=== PATIENT | female | born 1960 | race Caucasian/White ===

== ENCOUNTER 2017-06-04 12:45 | Inpatient (IN) ==
[2017-06-04] MEDS ORDERED: ACETAMINOPHEN 325 MG TABLET PO PRN (13:40)
[2017-06-04] MEDS ORDERED: MORPHINE 2 MG/1 ML SYRINGE IV PRN (13:40)
[2017-06-04] MEDS: PANTOPRAZOLE 40 MG VIAL IV SCH (15:23)
[2017-06-04 15:59] LABS: Basophils # 0.1 10*3/uL (0.0-0.2); Basophils % 0.4 % (0.0-0.8); Eosinophils % 0.1 % (0.00-10.9); Hematocrit 32.6 VOL% (35.7-47.0); Hemoglobin 11.4 GM/DL (12.0-16.0); Immature Granulocytes % 0.7 %; Immature Granulocytes Absolute 0.08 #; Lymphocytes # 1.4 10*3/uL (1.4-4.0); Lymphocytes % 12.1 % (21.3-54.2); Mean Corpuscular Hemoglobin 37 PG (27-34); Mean Corpuscular Volume 106.5 FL (87-102); Mean Platelet Volume 9.8 FL (9.6-12.0); Monocytes # 1.2 10*3/uL (0.11-0.8); Monocytes % 10.5 % (1.7-12.7); NRBC # 0.03 10*3/uL; Neutrophils # 8.9 10*3/uL (1.4-7.4); Neutrophils % 76.2 % (38.7-73.9); Platelet Count 361 T/CUMM (130-400); Red Blood Count 3.06 MC/CUMM (3.8-5.5); Red Cell Distribution Width 12.5 % (9.3-17.3); White Blood Count 11.7 T/CUMM (4-12)
[2017-06-04 16:18] LABS: Albumin 3.6 G/DL (3.4-5.0); Bilirubin,Total 1.6 MG/DL (0.2-1.0); Calcium 9.2 MG/DL (8.5-10.1); Ferritin 1488.2 ng/ml (8-252); Free T4 (Free Thyroxine) 1.56 NG/DL (0.76-1.46); Magnesium 1.8 MG/DL (1.8-2.4); Osmolality,Calculated 249.5 MOS/KG (273-304); Total Protein 7.6 G/DL (6.4-8.3)
[2017-06-04] MEDS: DEXT 5% NACL 0.9% KCL 20 MEQ 20 MEQ/1,000 ML BAG IV SCH (16:45)
[2017-06-04 16:58] LABS: Apearance,Urine CLEAR (Clear); Bacteria,Urine Occasional /HPF (Few); Bilirubin,Urine Negative (Negative); Blood, Urine Negative (Negative); Glucose,Urine (UA) Negative (Negative); Ketones,Urine 5 mg/dL (Negative); Mucus,Urine Occasional /LPF (Occasional); Nitrite,Urine Negative (Negative); Protein,Urine Negative; RBC,Urine <1 /HPF (0-4); Squamous Epithelial Cell,Urine Occasional /HPF (0-10); Urine Color Yellow (Yellow); Urine Specific Gravity 1.027 (1.001-1.035); WBC,Urine <1 /HPF (0-6)
[2017-06-04] MEDS: ONDANSETRON 4 MG/2 ML VIAL IV PRN (20:31)
[2017-06-04] MEDS: DOCUSATE SODIUM 100 MG CAPSULE PO SCH (22:58)
[2017-06-04] MEDS ORDERED: traMADol 50 MG TABLET PO PRN (23:36)
[2017-06-05] MEDS: DEXT 5% NACL 0.9% KCL 20 MEQ 20 MEQ/1,000 ML BAG IV SCH ×4 (00:25→22:46)
[2017-06-05 06:07] LABS: Calcium 8.4 MG/DL (8.5-10.1); Osmolality,Calculated 266.1 MOS/KG (273-304); Potassium 4.6 MMOL/L (3.5-5.1)
[2017-06-05 06:08] LABS: Risk Ratio 4.93; VLDL CHOLESTEROL 19.2 MG/DL
[2017-06-05] MEDS: ONDANSETRON 4 MG/2 ML VIAL IV PRN ×2 (07:44→17:07)
[2017-06-05] MEDS: PANTOPRAZOLE 40 MG VIAL IV SCH (08:22)
[2017-06-05] MEDS: DOCUSATE SODIUM 100 MG CAPSULE PO SCH ×2 (08:22→22:43)
[2017-06-05] MEDS: ESTROGENS (CONJ) 0.625 MG TABLET PO SCH (08:23)
[2017-06-06] MEDS: DEXT 5% NACL 0.9% KCL 20 MEQ 20 MEQ/1,000 ML BAG IV SCH ×3 (05:20→18:41)
[2017-06-06 06:01] LABS: Basophils % 0.5 % (0.0-0.8); Eosinophils % 0.3 % (0.00-10.9); Hematocrit 26.4 VOL% (35.7-47.0); Immature Granulocytes % 0.5 %; Immature Granulocytes Absolute 0.04 #; Lymphocytes # 1.4 10*3/uL (1.4-4.0); Lymphocytes % 15.6 % (21.3-54.2); Mean Corpuscular HGB Conc 34.1 GM/DL (32-36); Mean Corpuscular Hemoglobin 38 PG (27-34); Mean Corpuscular Volume 110.5 FL (87-102); Mean Platelet Volume 9.5 FL (9.6-12.0); Monocytes % 10.9 % (1.7-12.7); Neutrophils # 6.3 10*3/uL (1.4-7.4); Neutrophils % 72.2 % (38.7-73.9); Platelet Count 270 T/CUMM (130-400); Red Blood Count 2.39 MC/CUMM (3.8-5.5); Red Cell Distribution Width 12.8 % (9.3-17.3); White Blood Count 8.7 T/CUMM (4-12)
[2017-06-06 06:19] LABS: Giant Platelets Few; Hypochromasia 1+; Platelet Estimate Adequate
[2017-06-06 06:38] LABS: Calcium 8.4 MG/DL (8.5-10.1); Osmolality,Calculated 274.4 MOS/KG (273-304); Potassium 4.2 MMOL/L (3.5-5.1)
[2017-06-06] MEDS: ESTROGENS (CONJ) 0.625 MG TABLET PO SCH (09:15)
[2017-06-06] MEDS: DOCUSATE SODIUM 100 MG CAPSULE PO SCH (09:16)
[2017-06-06] MEDS: PANTOPRAZOLE 40 MG VIAL IV SCH (09:19)
[2017-06-06] MEDS ORDERED: POLYETHYLENE GLYCOL POWDER 255 GM BOTTLE PO ONE (11:00)
[2017-06-06] MEDS ORDERED: BISACODYL 5 MG TABLET PO ONE (11:30)
[2017-06-06] MEDS: ONDANSETRON 4 MG/2 ML VIAL IV PRN ×2 (14:02→21:39)
[2017-06-07 05:44] LABS: Basophils % 0.5 % (0.0-0.8); Eosinophils # 0.1 10*3/uL (0.0-0.87); Eosinophils % 0.6 % (0.00-10.9); Hematocrit 26.9 VOL% (35.7-47.0); Hemoglobin 9.3 GM/DL (12.0-16.0); Immature Granulocytes % 1.1 %; Immature Granulocytes Absolute 0.09 #; Lymphocytes # 1.2 10*3/uL (1.4-4.0); Lymphocytes % 14.6 % (21.3-54.2); Mean Corpuscular HGB Conc 34.6 GM/DL (32-36); Mean Corpuscular Hemoglobin 38 PG (27-34); Mean Corpuscular Volume 108.5 FL (87-102); Mean Platelet Volume 9.2 FL (9.6-12.0); Monocytes # 0.7 10*3/uL (0.11-0.8); Monocytes % 8.7 % (1.7-12.7); Neutrophils # 6.1 10*3/uL (1.4-7.4); Neutrophils % 74.5 % (38.7-73.9); Platelet Count 300 T/CUMM (130-400); Red Blood Count 2.48 MC/CUMM (3.8-5.5); Red Cell Distribution Width 12.7 % (9.3-17.3); White Blood Count 8.2 T/CUMM (4-12)
[2017-06-07 06:17] LABS: Blood Urea Nitrogen < 1 MG/DL (7-18); Glucose 89 MG/DL (74-106); Osmolality,Calculated 273.8 MOS/KG (273-304); Sodium 140 MMOL/L (136-145)
[2017-06-07] MEDS: DOCUSATE SODIUM 100 MG CAPSULE PO SCH ×2 (07:58→11:05)
[2017-06-07] MEDS: PANTOPRAZOLE 40 MG VIAL IV SCH (11:03)
[2017-06-07] MEDS: DEXT 5% NACL 0.9% KCL 20 MEQ 20 MEQ/1,000 ML BAG IV SCH ×2 (11:03→18:08)
[2017-06-07] MEDS: ESTROGENS (CONJ) 0.625 MG TABLET PO SCH (11:04)
[2017-06-07] MEDS ORDERED: ONDANSETRON 4 MG/2 ML VIAL ONE (13:53)
[2017-06-07] MEDS: ONDANSETRON 4 MG/2 ML VIAL IV PRN ×2 (13:58→21:59)
[2017-06-07] MEDS: metroNIDAZOLE INJ 500 MG in PREMIX 1 EACH IV SCH (18:10)
[2017-06-07] MEDS: CIPROFLOXACIN INJ 400 MG in PREMIX 1 EACH IV SCH (19:20)
[2017-06-08] MEDS: metroNIDAZOLE INJ 500 MG in PREMIX 1 EACH IV SCH ×3 (03:09→18:38)
[2017-06-08] MEDS: DOCUSATE SODIUM 100 MG CAPSULE PO SCH ×4 (03:09→23:08)
[2017-06-08 04:38] LABS: Basophils % 0.4 % (0.0-0.8); Eosinophils # 0.1 10*3/uL (0.0-0.87); Eosinophils % 0.7 % (0.00-10.9); Hemoglobin 9.1 GM/DL (12.0-16.0); Immature Granulocytes % 0.7 %; Immature Granulocytes Absolute 0.06 #; Lymphocytes # 1.2 10*3/uL (1.4-4.0); Mean Corpuscular Hemoglobin 37 PG (27-34); Mean Corpuscular Volume 106.6 FL (87-102); Monocytes # 0.7 10*3/uL (0.11-0.8); Neutrophils % 77.2 % (38.7-73.9); Platelet Count 298 T/CUMM (130-400); Red Blood Count 2.44 MC/CUMM (3.8-5.5); Red Cell Distribution Width 12.6 % (9.3-17.3); White Blood Count 9.1 T/CUMM (4-12)
[2017-06-08] MEDS: DEXT 5% NACL 0.9% KCL 20 MEQ 20 MEQ/1,000 ML BAG IV SCH ×2 (04:47→15:41)
[2017-06-08 04:58] LABS: Blood Urea Nitrogen < 1 MG/DL (7-18); Calcium 8.2 MG/DL (8.5-10.1); Glucose 78 MG/DL (74-106); Osmolality,Calculated 279.3 MOS/KG (273-304); Potassium 3.9 MMOL/L (3.5-5.1); Sodium 143 MMOL/L (136-145)
[2017-06-08] MEDS ORDERED: cefOXitin 2,000 MG in SYRINGE 1 EACH IV ONE (08:00)
[2017-06-08] MEDS ORDERED: ALBUMIN 5% 12.5 GM/250 ML VIAL IV ONE (08:37)
[2017-06-08] MEDS ORDERED: BUPIVACAINE 0.25% 50 ML VIAL ONE (08:50)
[2017-06-08] MEDS ORDERED: TISSUE ADHESIVE 1 EACH APPLICATOR TOP ONE (08:50)
[2017-06-08] MEDS ORDERED: ENOXAPARIN 30 MG/0.3 ML SYRINGE SUBCUT SCH (09:00)
[2017-06-08] MEDS: PANTOPRAZOLE 40 MG VIAL IV SCH (09:00)
[2017-06-08] MEDS: ESTROGENS (CONJ) 0.625 MG TABLET PO SCH (09:00)
[2017-06-08] MEDS: CIPROFLOXACIN INJ 400 MG in PREMIX 1 EACH IV SCH ×2 (09:00→23:05)
[2017-06-08] MEDS ORDERED: SEVOFLURANE 1 UNIT/15 MINUTE INH ONE (13:13)
[2017-06-08] MEDS ORDERED: LABETALOL 20 MG/4 ML SYRINGE IV ONE (13:13)
[2017-06-08] MEDS ORDERED: PROPOFOL 200 MG/20 ML VIAL IV ONE (13:13)
[2017-06-08] MEDS ORDERED: ONDANSETRON 4 MG/2 ML VIAL ONE (13:16)
[2017-06-08] MEDS ORDERED: fentaNYL 100 MCG/2 ML VIAL ONE ×2 (13:16)
[2017-06-08] MEDS ORDERED: MIDAZOLAM 2 MG/2 ML VIAL ONE (13:16)
[2017-06-08] MEDS ORDERED: DEXAMETHASONE 10 MG/1 ML VIAL ONE (13:16)
[2017-06-08] MEDS ORDERED: GLYCOPYRROLATE 0.4 MG/2 ML VIAL ONE (13:16)
[2017-06-08] MEDS ORDERED: HYDROmorphone 2 MG/1 ML VIAL ONE (13:16)
[2017-06-08] MEDS ORDERED: PROMETHAZINE 25 MG/1 ML VIAL ONE (13:16)
[2017-06-08] MEDS ORDERED: NEOSTIGMINE 10 MG/10 ML VIAL ONE (13:17)
[2017-06-08] MEDS ORDERED: ROCURONIUM 100 MG/10 ML VIAL IV ONE (13:17)
[2017-06-08] MEDS ORDERED: LACTATED RINGERS 2,000 ML IV ONE (13:17)
[2017-06-08 13:19] LABS: Apearance,Urine CLEAR (Clear); Bilirubin,Urine Negative (Negative); Blood, Urine Negative (Negative); Glucose,Urine (UA) Negative (Negative); Hyaline Casts,Urine 12 /LPF (0-3); Ketones,Urine Negative (Negative); Mucus,Urine Few /LPF (Occasional); Nitrite,Urine Negative (Negative); Protein,Urine Negative; RBC,Urine <1 /HPF (0-4); Squamous Epithelial Cell,Urine Occasional /HPF (0-10); Urine Color Yellow (Yellow); Urine Specific Gravity 1.008 (1.001-1.035); Urine Urobilinogen < 2.0 EU/DL (0.2-1.0); WBC,Urine 3 /HPF (0-6)
[2017-06-08] MEDS ORDERED: SCOPOLAMINE 1.5 MG PATCH TRANSDERM ONE (13:22)
[2017-06-08 13:25] LABS: Hematocrit 26.5 VOL% (35.7-47.0); Hemoglobin 9.1 GM/DL (12.0-16.0)
[2017-06-08] MEDS ORDERED: BUPIVACAINE 0.25% /EPI 10 ML VIAL ONE (13:59)
[2017-06-08] MEDS: DEXTROSE 5% LACTATED RINGERS 1,000 ML IV SCH (16:47)
[2017-06-08] MEDS: cefOXitin 2,000 MG in SYRINGE 1 EACH IV SCH (18:38)
[2017-06-08] MEDS: ONDANSETRON 4 MG/2 ML VIAL IV PRN (19:57)
[2017-06-08 20:25] LABS: Hemoglobin 9.2 GM/DL (12.0-16.0)
[2017-06-08] MEDS: MORPHINE PCA 30 MG/30 ML SYRINGE IV SCH (23:33)
[2017-06-09] MEDS: cefOXitin 2,000 MG in SYRINGE 1 EACH IV SCH ×5 (01:33→23:48)
[2017-06-09] MEDS: metroNIDAZOLE INJ 500 MG in PREMIX 1 EACH IV SCH ×3 (03:30→18:30)
[2017-06-09] MEDS: DEXTROSE 5% LACTATED RINGERS 1,000 ML IV SCH ×3 (03:33→16:26)
[2017-06-09 04:49] LABS: Basophils % 0.1 % (0.0-0.8); Eosinophils % 0.1 % (0.00-10.9); Hematocrit 26.3 VOL% (35.7-47.0); Hemoglobin 9.2 GM/DL (12.0-16.0); Immature Granulocytes % 0.8 %; Immature Granulocytes Absolute 0.11 #; Lymphocytes # 1.2 10*3/uL (1.4-4.0); Lymphocytes % 8.6 % (21.3-54.2); Mean Corpuscular Hemoglobin 38 PG (27-34); Mean Corpuscular Volume 107.3 FL (87-102); Mean Platelet Volume 9.3 FL (9.6-12.0); Monocytes # 1.3 10*3/uL (0.11-0.8); Monocytes % 9.2 % (1.7-12.7); Neutrophils # 11.5 10*3/uL (1.4-7.4); Neutrophils % 81.2 % (38.7-73.9); Platelet Count 307 T/CUMM (130-400); Red Blood Count 2.45 MC/CUMM (3.8-5.5); Red Cell Distribution Width 12.8 % (9.3-17.3); White Blood Count 14.1 T/CUMM (4-12)
[2017-06-09 05:54] LABS: Calcium 8.5 MG/DL (8.5-10.1); Magnesium 1.3 MG/DL (1.8-2.4); Osmolality,Calculated 271.7 MOS/KG (273-304)
[2017-06-09] MEDS ORDERED: MAGNESIUM SULF RIDER 2 GM in PREMIX 1 EACH IV ONE (08:31)
[2017-06-09] MEDS: CIPROFLOXACIN INJ 400 MG in PREMIX 1 EACH IV SCH ×2 (09:17→22:19)
[2017-06-09] MEDS: PANTOPRAZOLE 40 MG VIAL IV SCH (09:19)
[2017-06-09] MEDS: ENOXAPARIN 40 MG/0.4 ML SYRINGE SUBCUT SCH (09:22)
[2017-06-09] MEDS: DOCUSATE SODIUM 100 MG CAPSULE PO SCH ×2 (09:23→22:19)
[2017-06-09] MEDS: ESTROGENS (CONJ) 0.625 MG TABLET PO SCH (09:23)
[2017-06-09] MEDS: ONDANSETRON 4 MG/2 ML VIAL IV PRN ×2 (10:40→17:45)
[2017-06-09] MEDS: POTASSIUM CHLORIDE RIDER 10 MEQ in PREMIX 1 EACH IV PRN ×5 (13:06→20:35)
[2017-06-10] MEDS: ONDANSETRON 4 MG/2 ML VIAL IV PRN ×4 (00:08→17:48)
[2017-06-10] MEDS: metroNIDAZOLE INJ 500 MG in PREMIX 1 EACH IV SCH ×3 (02:28→17:58)
[2017-06-10] MEDS: cefOXitin 2,000 MG in SYRINGE 1 EACH IV SCH ×3 (05:29→17:54)
[2017-06-10 05:50] LABS: Basophils % 0.1 % (0.0-0.8); Eosinophils % 0.5 % (0.00-10.9); Hematocrit 24.2 VOL% (35.7-47.0); Hemoglobin 8.3 GM/DL (12.0-16.0); Immature Granulocytes % 0.5 %; Immature Granulocytes Absolute 0.04 #; Lymphocytes # 0.9 10*3/uL (1.4-4.0); Lymphocytes % 11.2 % (21.3-54.2); Mean Corpuscular HGB Conc 34.3 GM/DL (32-36); Mean Corpuscular Hemoglobin 37 PG (27-34); Mean Corpuscular Volume 106.6 FL (87-102); Mean Platelet Volume 8.9 FL (9.6-12.0); Monocytes # 0.9 10*3/uL (0.11-0.8); Monocytes % 11.6 % (1.7-12.7); Neutrophils % 76.1 % (38.7-73.9); Platelet Count 238 T/CUMM (130-400); Red Blood Count 2.27 MC/CUMM (3.8-5.5); Red Cell Distribution Width 12.9 % (9.3-17.3); White Blood Count 7.9 T/CUMM (4-12)
[2017-06-10 06:12] LABS: Blood Urea Nitrogen < 1 MG/DL (7-18); Calcium 8.1 MG/DL (8.5-10.1); Glucose 126 MG/DL (74-106); Osmolality,Calculated 274.9 MOS/KG (273-304); Potassium 3.6 MMOL/L (3.5-5.1); Sodium 139 MMOL/L (136-145)
[2017-06-10 08:17] LABS: Ferritin 746.7 ng/ml (8-252)
[2017-06-10] MEDS: ENOXAPARIN 40 MG/0.4 ML SYRINGE SUBCUT SCH (08:55)
[2017-06-10] MEDS: PANTOPRAZOLE 40 MG VIAL IV SCH (08:55)
[2017-06-10] MEDS: ESTROGENS (CONJ) 0.625 MG TABLET PO SCH (08:55)
[2017-06-10] MEDS: MAGNESIUM CHLORIDE 64 MG TABLET PO SCH (08:55)
[2017-06-10] MEDS: DOCUSATE SODIUM 100 MG CAPSULE PO SCH ×2 (08:55→21:40)
[2017-06-10 08:56] LABS: Folate 3.5 NG/ML (5.4-24.0)
[2017-06-10] MEDS: CIPROFLOXACIN INJ 400 MG in PREMIX 1 EACH IV SCH ×2 (09:01→21:37)
[2017-06-10] MEDS: DEXTROSE 5% LACTATED RINGERS 1,000 ML IV SCH (10:24)
[2017-06-10] MEDS ORDERED: PROMETHAZINE 25 MG/1 ML VIAL IM PRN (10:29)
[2017-06-10] MEDS: MORPHINE PCA 30 MG/30 ML SYRINGE IV SCH (17:44)
[2017-06-11] MEDS: cefOXitin 2,000 MG in SYRINGE 1 EACH IV SCH ×2 (00:02→06:37)
[2017-06-11] MEDS: metroNIDAZOLE INJ 500 MG in PREMIX 1 EACH IV SCH ×3 (02:34→17:26)
[2017-06-11 06:48] LABS: Basophils % 0.4 % (0.0-0.8); Eosinophils % 0.5 % (0.00-10.9); Hematocrit 24.4 VOL% (35.7-47.0); Hemoglobin 8.4 GM/DL (12.0-16.0); Immature Granulocytes % 0.5 %; Immature Granulocytes Absolute 0.04 #; Lymphocytes # 0.9 10*3/uL (1.4-4.0); Lymphocytes % 11.3 % (21.3-54.2); Mean Corpuscular HGB Conc 34.4 GM/DL (32-36); Mean Corpuscular Hemoglobin 37 PG (27-34); Mean Corpuscular Volume 106.6 FL (87-102); Monocytes # 0.8 10*3/uL (0.11-0.8); Monocytes % 10.4 % (1.7-12.7); Neutrophils # 5.8 10*3/uL (1.4-7.4); Neutrophils % 76.9 % (38.7-73.9); Platelet Count 239 T/CUMM (130-400); Red Blood Count 2.29 MC/CUMM (3.8-5.5); Red Cell Distribution Width 12.3 % (9.3-17.3); White Blood Count 7.5 T/CUMM (4-12)
[2017-06-11] MEDS: DEXTROSE 5% LACTATED RINGERS 1,000 ML IV SCH ×2 (06:55→23:00)
[2017-06-11 07:00] LABS: Blood Urea Nitrogen < 1 MG/DL (7-18); Calcium 8.1 MG/DL (8.5-10.1); Glucose 127 MG/DL (74-106); Magnesium 1.9 MG/DL (1.8-2.4); Osmolality,Calculated 278.6 MOS/KG (273-304); Potassium 3.5 MMOL/L (3.5-5.1); Sodium 141 MMOL/L (136-145)
[2017-06-11] MEDS: ESTROGENS (CONJ) 0.625 MG TABLET PO SCH (09:08)
[2017-06-11] MEDS: MAGNESIUM CHLORIDE 64 MG TABLET PO SCH (09:08)
[2017-06-11] MEDS: DOCUSATE SODIUM 100 MG CAPSULE PO SCH ×2 (09:08→20:42)
[2017-06-11] MEDS: CIPROFLOXACIN INJ 400 MG in PREMIX 1 EACH IV SCH ×2 (09:09→20:42)
[2017-06-11] MEDS: MORPHINE PCA 30 MG/30 ML SYRINGE IV SCH ×3 (09:09→20:43)
[2017-06-11] MEDS: ENOXAPARIN 40 MG/0.4 ML SYRINGE SUBCUT SCH (09:09)
[2017-06-11] MEDS: PANTOPRAZOLE 40 MG VIAL IV SCH (09:09)
[2017-06-11] MEDS: ONDANSETRON 4 MG/2 ML VIAL IV PRN ×3 (09:18→18:15)
[2017-06-12] MEDS: metroNIDAZOLE INJ 500 MG in PREMIX 1 EACH IV SCH ×2 (03:00→09:14)
[2017-06-12 08:26] VITALS: BP 134/87
[2017-06-12] MEDS: CIPROFLOXACIN INJ 400 MG in PREMIX 1 EACH IV SCH (09:15)
[2017-06-12] MEDS: ENOXAPARIN 40 MG/0.4 ML SYRINGE SUBCUT SCH (09:15)
[2017-06-12] MEDS: ESTROGENS (CONJ) 0.625 MG TABLET PO SCH (09:15)
[2017-06-12] MEDS: MAGNESIUM CHLORIDE 64 MG TABLET PO SCH (09:15)
[2017-06-12] MEDS: PANTOPRAZOLE 40 MG VIAL IV SCH (09:15)
[2017-06-12] MEDS: DOCUSATE SODIUM 100 MG CAPSULE PO SCH (09:15)
== END 2017-06-12 12:00 | disposition home or self-care (01) | DRG 330 ==
LOC: N.2E 14:11
PROVIDERS: ADMIT Family Medicine; ATTEND Family Medicine
PROC: COLONBX (2017-06-07 12:20)

== ENCOUNTER 2017-07-30 13:26 | Inpatient (IN) ==
[2017-07-30] MEDS ORDERED: ACETAMINOPHEN 325 MG TABLET PO PRN (13:36)
[2017-07-30] MEDS ORDERED: MAGNESIUM HYDROXIDE SUSP 30 ML UDCUP PO PRN (13:36)
[2017-07-30] MEDS ORDERED: DEXTROSE 5% NACL 0.9% 1,000 ML IV SCH (14:00)
[2017-07-30] MEDS: PANTOPRAZOLE 40 MG VIAL IV SCH (15:04)
[2017-07-30] MEDS: ONDANSETRON 4 MG/2 ML VIAL IV PRN (15:05)
[2017-07-30 16:22] LABS: Basophils % 0.4 % (0.0-0.8); Hematocrit 35.3 VOL% (35.7-47.0); Hemoglobin 12.8 GM/DL (12.0-16.0); Immature Granulocytes % 0.6 %; Immature Granulocytes Absolute 0.04 #; Lymphocytes # 0.7 10*3/uL (1.4-4.0); Lymphocytes % 9.3 % (21.3-54.2); Mean Corpuscular HGB Conc 36.3 GM/DL (32-36); Mean Corpuscular Hemoglobin 37 PG (27-34); Monocytes # 0.6 10*3/uL (0.11-0.8); Monocytes % 8.8 % (1.7-12.7); Neutrophils # 5.7 10*3/uL (1.4-7.4); Neutrophils % 80.9 % (38.7-73.9); Platelet Count 61 T/CUMM (130-400); Red Blood Count 3.46 MC/CUMM (3.8-5.5); Red Cell Distribution Width 15.9 % (9.3-17.3); White Blood Count 7.1 T/CUMM (4-12)
[2017-07-30 16:57] LABS: Albumin 3.3 G/DL (3.4-5.0); Calcium 8.9 MG/DL (8.5-10.1); Osmolality,Calculated 267.2 MOS/KG (273-304); Potassium 2.9 MMOL/L (3.5-5.1); Total Protein 6.5 G/DL (6.4-8.3)
[2017-07-30 17:20] LABS: Band Neutrophils 2 % (0-10); Lymphocytes 7 % (20-55); Segmented Neutrophils 89 % (50-85); Total Cells Counted 100
[2017-07-30 17:22] LABS: Anisocytosis 1+; Platelet Estimate Decreased; Tear Drop Cells Few
[2017-07-30] MEDS ORDERED: POTASSIUM CHLORIDE RIDER 10 MEQ in PREMIX 1 EACH IV PRN (17:26)
[2017-07-30] MEDS: MORPHINE 10 MG/1 ML VIAL IV PRN (17:51)
[2017-07-30] MEDS ORDERED: POTASSIUM CHLORIDE INJ 30 MEQ in SODIUM CHLORIDE 0.9% 250 ML IV ONE (18:00)
[2017-07-30] MEDS ORDERED: MAGNESIUM SULF RIDER 2 GM in PREMIX 1 EACH IV ONE (18:02)
[2017-07-30] MEDS: DEXT 5% NACL 0.9% KCL 20 MEQ 20 MEQ/1,000 ML BAG IV SCH (18:13)
[2017-07-30 22:11] LABS: Apearance,Urine CLEAR (Clear); Bilirubin,Urine Negative (Negative); Blood, Urine Negative (Negative); Glucose,Urine (UA) 50 mg/dL (Negative); Hyaline Casts,Urine 4 /LPF (0-3); Ketones,Urine 20 mg/dL (Negative); Mucus,Urine Few /LPF (Occasional); Nitrite,Urine Negative (Negative); Protein,Urine 30 MG/DL; RBC,Urine <1 /HPF (0-4); Squamous Epithelial Cell,Urine Occasional /HPF (0-10); Urine Color Amber (Yellow); Urine Specific Gravity 1.025 (1.001-1.035); WBC,Urine <1 /HPF (0-6)
[2017-07-30] MEDS: PROMETHAZINE 25 MG/1 ML VIAL IM PRN (22:43)
[2017-07-31] MEDS: ONDANSETRON 4 MG/2 ML VIAL IV PRN ×2 (04:22→11:57)
[2017-07-31] MEDS: DEXT 5% NACL 0.9% KCL 20 MEQ 20 MEQ/1,000 ML BAG IV SCH ×2 (04:45→17:50)
[2017-07-31 06:37] LABS: Basophils % 0.5 % (0.0-0.8); Eosinophils # 0.1 10*3/uL (0.0-0.87); Hematocrit 34.6 VOL% (35.7-47.0); Hemoglobin 12.2 GM/DL (12.0-16.0); Immature Granulocytes % 0.5 %; Immature Granulocytes Absolute 0.03 #; Lymphocytes # 1.3 10*3/uL (1.4-4.0); Mean Corpuscular HGB Conc 35.3 GM/DL (32-36); Mean Corpuscular Hemoglobin 37 PG (27-34); Mean Corpuscular Volume 103.9 FL (87-102); Mean Platelet Volume 10.1 FL (9.6-12.0); Monocytes # 0.5 10*3/uL (0.11-0.8); Red Blood Count 3.33 MC/CUMM (3.8-5.5); Red Cell Distribution Width 15.9 % (9.3-17.3); White Blood Count 5.9 T/CUMM (4-12)
[2017-07-31 06:39] LABS: Platelet Count 47 T/CUMM (130-400)
[2017-07-31 07:02] LABS: Calcium 8.1 MG/DL (8.5-10.1); Osmolality,Calculated 273.7 MOS/KG (273-304)
[2017-07-31 07:09] LABS: Albumin 2.9 G/DL (3.4-5.0); Bilirubin,Total 2.9 MG/DL (0.2-1.0); Calcium 8.1 MG/DL (8.5-10.1); Osmolality,Calculated 272.7 MOS/KG (273-304)
[2017-07-31 07:10] LABS: % Iron Saturation 93.8 % (18-50); Ferritin 1167.2 ng/ml (8-252)
[2017-07-31 07:12] LABS: Risk Ratio 2.44; VLDL CHOLESTEROL 21.2 MG/DL
[2017-07-31] MEDS: PANTOPRAZOLE 40 MG VIAL IV SCH (08:47)
[2017-07-31] MEDS: MORPHINE 10 MG/1 ML VIAL IV PRN (08:53)
[2017-07-31] MEDS ORDERED: POTASSIUM CHLORIDE INJ 50 MEQ in SODIUM CHLORIDE 0.9% 500 ML IV ONE (09:00)
[2017-07-31] MEDS: MORPHINE 2 MG/1 ML SYRINGE IV PRN ×2 (11:59→21:29)
[2017-07-31] MEDS: PROMETHAZINE 25 MG/1 ML VIAL IM PRN (21:29)
[2017-08-01] MEDS: DEXT 5% NACL 0.9% KCL 20 MEQ 20 MEQ/1,000 ML BAG IV SCH ×3 (01:50→19:04)
[2017-08-01 08:17] LABS: Basophils % 0.3 % (0.0-0.8); Eosinophils # 0.1 10*3/uL (0.0-0.87); Eosinophils % 1.1 % (0.00-10.9); Hematocrit 37.9 VOL% (35.7-47.0); Hemoglobin 12.9 GM/DL (12.0-16.0); Immature Granulocytes % 0.8 %; Immature Granulocytes Absolute 0.05 #; Lymphocytes # 1.2 10*3/uL (1.4-4.0); Lymphocytes % 18.9 % (21.3-54.2); Mean Corpuscular Hemoglobin 38 PG (27-34); Mean Corpuscular Volume 110.5 FL (87-102); Mean Platelet Volume 11.6 FL (9.6-12.0); Monocytes # 0.5 10*3/uL (0.11-0.8); Monocytes % 8.2 % (1.7-12.7); Neutrophils # 4.6 10*3/uL (1.4-7.4); Neutrophils % 70.7 % (38.7-73.9); Platelet Count 48 T/CUMM (130-400); Red Blood Count 3.43 MC/CUMM (3.8-5.5); Red Cell Distribution Width 15.9 % (9.3-17.3); White Blood Count 6.5 T/CUMM (4-12)
[2017-08-01 08:48] LABS: Giant Platelets Few; Hypochromasia 1+; Ovalocytes Slight; Platelet Estimate Decreased
[2017-08-01] MEDS: ONDANSETRON 4 MG/2 ML VIAL IV PRN (08:57)
[2017-08-01] MEDS: MORPHINE 2 MG/1 ML SYRINGE IV PRN ×2 (09:01→21:53)
[2017-08-01] MEDS: PANTOPRAZOLE 40 MG VIAL IV SCH (09:04)
[2017-08-01] MEDS: PROMETHAZINE 25 MG/1 ML VIAL IM PRN (21:58)
[2017-08-02] MEDS: DEXT 5% NACL 0.9% KCL 20 MEQ 20 MEQ/1,000 ML BAG IV SCH ×2 (03:05→11:08)
[2017-08-02 06:02] LABS: Basophils % 0.6 % (0.0-0.8); Eosinophils # 0.1 10*3/uL (0.0-0.87); Eosinophils % 2.1 % (0.00-10.9); Hematocrit 34.3 VOL% (35.7-47.0); Hemoglobin 11.7 GM/DL (12.0-16.0); Immature Granulocytes % 0.4 %; Immature Granulocytes Absolute 0.02 #; Lymphocytes # 1.3 10*3/uL (1.4-4.0); Lymphocytes % 27.3 % (21.3-54.2); Mean Corpuscular HGB Conc 34.1 GM/DL (32-36); Mean Corpuscular Hemoglobin 37 PG (27-34); Mean Corpuscular Volume 108.5 FL (87-102); Mean Platelet Volume 12.3 FL (9.6-12.0); Monocytes # 0.5 10*3/uL (0.11-0.8); Monocytes % 11.2 % (1.7-12.7); Neutrophils # 2.7 10*3/uL (1.4-7.4); Neutrophils % 58.4 % (38.7-73.9); Platelet Count 43 T/CUMM (130-400); Red Blood Count 3.16 MC/CUMM (3.8-5.5); Red Cell Distribution Width 15.6 % (9.3-17.3); White Blood Count 4.7 T/CUMM (4-12)
[2017-08-02 06:22] LABS: Giant Platelets Few; Hypochromasia 1+; Platelet Estimate Decreased
[2017-08-02 06:28] LABS: Albumin 2.5 G/DL (3.4-5.0); Bilirubin,Total 2.4 MG/DL (0.2-1.0); Calcium 8.3 MG/DL (8.5-10.1); Ferritin 839.1 ng/ml (8-252); Osmolality,Calculated 277.3 MOS/KG (273-304); Potassium 4.4 MMOL/L (3.5-5.1); Total Protein 5.3 G/DL (6.4-8.3)
[2017-08-02] MEDS: PANTOPRAZOLE 40 MG VIAL IV SCH (08:48)
[2017-08-02] MEDS: FOLIC ACID 1 MG TABLET PO SCH (08:48)
[2017-08-02] MEDS: ONDANSETRON 4 MG/2 ML VIAL IV PRN (08:53)
[2017-08-02] MEDS ORDERED: LIDOCAINE 2% 5 ML VIAL ONE (12:14)
[2017-08-02] MEDS ORDERED: PROPOFOL 200 MG/20 ML VIAL IV ONE (12:14)
[2017-08-02] MEDS: PROMETHAZINE 25 MG/1 ML VIAL IM PRN (21:12)
[2017-08-03 06:49] LABS: Basophils % 0.4 % (0.0-0.8); Eosinophils # 0.1 10*3/uL (0.0-0.87); Eosinophils % 2.3 % (0.00-10.9); Hematocrit 36.1 VOL% (35.7-47.0); Hemoglobin 12.5 GM/DL (12.0-16.0); Immature Granulocytes % 0.6 %; Immature Granulocytes Absolute 0.03 #; Lymphocytes # 1.2 10*3/uL (1.4-4.0); Lymphocytes % 26.2 % (21.3-54.2); Mean Corpuscular HGB Conc 34.6 GM/DL (32-36); Mean Corpuscular Hemoglobin 37 PG (27-34); Mean Corpuscular Volume 107.4 FL (87-102); Mean Platelet Volume 11.3 FL (9.6-12.0); Monocytes # 0.5 10*3/uL (0.11-0.8); Monocytes % 10.4 % (1.7-12.7); Neutrophils # 2.8 10*3/uL (1.4-7.4); Neutrophils % 60.1 % (38.7-73.9); Platelet Count 50 T/CUMM (130-400); Red Blood Count 3.36 MC/CUMM (3.8-5.5); Red Cell Distribution Width 15.2 % (9.3-17.3); White Blood Count 4.7 T/CUMM (4-12)
[2017-08-03 07:10] LABS: Giant Platelets Few; Hypochromasia 1+; Ovalocytes Slight; Platelet Estimate Decreased
[2017-08-03 07:17] LABS: Osmolality,Calculated 272.5 MOS/KG (273-304); Potassium 4.1 MMOL/L (3.5-5.1)
[2017-08-03 07:40] VITALS: BP 130/94
[2017-08-03] MEDS ORDERED: PANTOPRAZOLE 40 MG TABLET PO SCH (09:00)
[2017-08-03] MEDS: FOLIC ACID 1 MG TABLET PO SCH (09:48)
== END 2017-08-03 11:03 | disposition home or self-care (01) | DRG 384 ==
LOC: N.2E 14:07
PROVIDERS: ADMIT Family Medicine; ATTEND Family Medicine

== ENCOUNTER 2017-11-15 10:28 | Inpatient (IN) ==
[2017-11-15] MEDS ORDERED: ACETAMINOPHEN 325 MG TABLET PO PRN (11:19)
[2017-11-15] MEDS ORDERED: DEXTROSE 5% NACL 0.9% 1,000 ML IV SCH (11:30)
[2017-11-15] MEDS: MORPHINE 4 MG/1 ML VIAL IV PRN (12:44)
[2017-11-15] MEDS: PANTOPRAZOLE 40 MG VIAL IV SCH (12:45)
[2017-11-15 13:11] LABS: Basophils # 0.1 10*3/uL (0.0-0.2); Basophils % 0.6 % (0.0-0.8); Eosinophils % 0.1 % (0.00-10.9); Hematocrit 28.8 VOL% (35.7-47.0); Hemoglobin 9.6 GM/DL (12.0-16.0); Lymphocytes # 0.6 10*3/uL (1.4-4.0); Lymphocytes % 6.3 % (21.3-54.2); Mean Corpuscular HGB Conc 33.3 GM/DL (32-36); Mean Corpuscular Hemoglobin 36 PG (27-34); Mean Corpuscular Volume 109.1 FL (87-102); Mean Platelet Volume 10.1 FL (9.6-12.0); Monocytes % 10.2 % (1.7-12.7); Neutrophils # 8.1 10*3/uL (1.4-7.4); Neutrophils % 81.8 % (38.7-73.9); Platelet Count 103 T/CUMM (130-400); Red Blood Count 2.64 MC/CUMM (3.8-5.5); Red Cell Distribution Width 18.1 % (9.3-17.3)
[2017-11-15 13:42] LABS: Osmolality,Calculated 259.5 MOS/KG (273-304); Potassium 3.1 MMOL/L (3.5-5.1)
[2017-11-15 15:52] LABS: Apearance,Urine Slightly Hazy (Clear); Bacteria,Urine Few /HPF (Few); Bilirubin,Urine Moderate mg/dL (Negative); Blood, Urine Negative (Negative); Glucose,Urine (UA) 50 mg/dL (Negative); Hyaline Casts,Urine 11 /LPF (0-3); Ketones,Urine 20 mg/dL (Negative); Mucus,Urine Moderate /LPF (Occasional); Nitrite,Urine Negative (Negative); Protein,Urine 30 MG/DL; RBC,Urine <1 /HPF (0-4); Squamous Epithelial Cell,Urine Occasional /HPF (0-10); Urine Color Amber (Yellow); Urine Specific Gravity 1.016 (1.001-1.035); WBC,Urine 6 /HPF (0-6)
[2017-11-15 16:41] LABS: Albumin 2.1 G/DL (3.4-5.0); Bilirubin,Direct 6.63 MG/DL (0.0-0.20); Bilirubin,Indirect 2.4 MG/DL (0.0-1.0); Total Protein 6.7 G/DL (6.4-8.3)
[2017-11-15] MEDS: ONDANSETRON 4 MG/2 ML VIAL IV PRN (17:48)
[2017-11-15] MEDS: POTASSIUM CHLORIDE INJ 20 MEQ, MAGNESIUM SULF INJ 1 GM in DEXTROSE 5% NACL 0.9% 1,000 ML IV SCH (18:14)
[2017-11-15] MEDS: DOCUSATE SODIUM 100 MG CAPSULE PO SCH (21:27)
[2017-11-16] MEDS: MORPHINE 4 MG/1 ML VIAL IV PRN ×4 (01:36→20:42)
[2017-11-16] MEDS: POTASSIUM CHLORIDE INJ 20 MEQ, MAGNESIUM SULF INJ 1 GM in DEXTROSE 5% NACL 0.9% 1,000 ML IV SCH ×3 (02:20→20:41)
[2017-11-16 06:00] LABS: Basophils % 0.5 % (0.0-0.8); Eosinophils % 0.1 % (0.00-10.9); Hematocrit 24.1 VOL% (35.7-47.0); Hemoglobin 7.9 GM/DL (12.0-16.0); Immature Granulocytes % 0.8 %; Immature Granulocytes Absolute 0.06 #; Lymphocytes # 0.9 10*3/uL (1.4-4.0); Lymphocytes % 10.8 % (21.3-54.2); Mean Corpuscular HGB Conc 32.8 GM/DL (32-36); Mean Corpuscular Hemoglobin 37 PG (27-34); Mean Corpuscular Volume 111.6 FL (87-102); Mean Platelet Volume 10.3 FL (9.6-12.0); Monocytes # 0.6 10*3/uL (0.11-0.8); Neutrophils # 6.3 10*3/uL (1.4-7.4); Neutrophils % 79.8 % (38.7-73.9); Platelet Count 86 T/CUMM (130-400); Red Blood Count 2.16 MC/CUMM (3.8-5.5); White Blood Count 7.9 T/CUMM (4-12)
[2017-11-16 06:03] LABS: Basophils % 0.4 % (0.0-0.8); Eosinophils % 0.1 % (0.00-10.9); Hematocrit 23.6 VOL% (35.7-47.0); Hemoglobin 7.8 GM/DL (12.0-16.0); Immature Granulocytes % 0.9 %; Immature Granulocytes Absolute 0.07 #; Lymphocytes # 0.8 10*3/uL (1.4-4.0); Lymphocytes % 10.1 % (21.3-54.2); Mean Corpuscular HGB Conc 33.1 GM/DL (32-36); Mean Corpuscular Hemoglobin 36 PG (27-34); Mean Corpuscular Volume 109.8 FL (87-102); Mean Platelet Volume 10.2 FL (9.6-12.0); Monocytes # 0.7 10*3/uL (0.11-0.8); Monocytes % 8.3 % (1.7-12.7); Neutrophils # 6.5 10*3/uL (1.4-7.4); Neutrophils % 80.2 % (38.7-73.9); Platelet Count 93 T/CUMM (130-400); Red Blood Count 2.15 MC/CUMM (3.8-5.5); Red Cell Distribution Width 17.9 % (9.3-17.3); White Blood Count 8.1 T/CUMM (4-12)
[2017-11-16 06:26] LABS: Band Neutrophils 1 % (0-10); Hypochromasia 1+; Lymphocytes 10 % (20-55); Macrocytosis 1+; Segmented Neutrophils 84 % (50-85); Total Cells Counted 100
[2017-11-16 06:27] LABS: Platelet Estimate Decreased; Target Cells Slight
[2017-11-16 06:30] LABS: Eosinophils 1 % (0-10); Hypochromasia 1+; Lymphocytes 6 % (20-55); Macrocytosis 1+; Platelet Estimate Decreased; Segmented Neutrophils 88 % (50-85); Target Cells Slight; Total Cells Counted 100
[2017-11-16 06:55] LABS: Bilirubin,Total 9.8 MG/DL (0.2-1.0); Calcium 7.5 MG/DL (8.5-10.1); Ferritin 2571.1 ng/ml (8-252); Osmolality,Calculated 272.8 MOS/KG (273-304); Potassium 3.6 MMOL/L (3.5-5.1); Risk Ratio 8.17; Total Protein 5.6 G/DL (6.4-8.3); VLDL CHOLESTEROL 32.6 MG/DL
[2017-11-16 07:21] LABS: Sedimentation Rate-Westergren 68 MM/HR (0-30)
[2017-11-16 07:31] LABS: Folate 9.7 NG/ML (5.4-24.0); Hepatitis A Ab IgM Quant 0.15 Index; Hepatitis A Ab IgM Result Negative (Negative); Hepatitis B Core IgM Quant 0.21 Index; Hepatitis B Core IgM Result Negative (Negative); Hepatitis B Surface Ag Quant 0.16 Index; Hepatitis B Surface Ag Result Negative (Negative); Hepatitis C Virus Ab Quant > 11.00 Index; Hepatitis C Virus Ab Result Positive (Negative); Vitamin B12 985 PG/ML (211-911)
[2017-11-16] MEDS: ESTROGENS (CONJ) 0.625 MG TABLET PO SCH (08:33)
[2017-11-16] MEDS: DOCUSATE SODIUM 100 MG CAPSULE PO SCH ×2 (08:33→20:42)
[2017-11-16] MEDS: FOLIC ACID 1 MG TABLET PO SCH (08:33)
[2017-11-16] MEDS: ONDANSETRON 4 MG/2 ML VIAL IV PRN ×4 (08:34→22:18)
[2017-11-16] MEDS: PANTOPRAZOLE 40 MG VIAL IV SCH (08:42)
[2017-11-16 10:14] LABS: Hemoglobin A1 (Alkaline) 97.7 % (96.5-98.5); Hemoglobin A2 (Alkaline) 2.3 % (1.5-3.5)
[2017-11-16] MEDS: LORazepam 1 MG TABLET PO SCH ×2 (16:02→20:42)
[2017-11-16] MEDS: THIAMINE 200 MG/2 ML VIAL IV SCH (17:54)
[2017-11-17 04:00] LABS: Basophils % 0.4 % (0.0-0.8); Eosinophils # 0.1 10*3/uL (0.0-0.87); Eosinophils % 1.6 % (0.00-10.9); Hematocrit 20.4 VOL% (35.7-47.0); Hemoglobin 6.8 GM/DL (12.0-16.0); Immature Granulocytes % 0.6 %; Immature Granulocytes Absolute 0.04 #; Lymphocytes % 14.7 % (21.3-54.2); Mean Corpuscular HGB Conc 33.3 GM/DL (32-36); Mean Corpuscular Hemoglobin 37 PG (27-34); Mean Corpuscular Volume 110.9 FL (87-102); Mean Platelet Volume 10.7 FL (9.6-12.0); Monocytes # 0.7 10*3/uL (0.11-0.8); Monocytes % 9.9 % (1.7-12.7); NRBC # 0.02 10*3/uL; Neutrophils # 5.1 10*3/uL (1.4-7.4); Neutrophils % 72.8 % (38.7-73.9); Platelet Count 78 T/CUMM (130-400); Red Blood Count 1.84 MC/CUMM (3.8-5.5); Red Cell Distribution Width 17.7 % (9.3-17.3)
[2017-11-17 04:17] LABS: Albumin 1.7 G/DL (3.4-5.0); Bilirubin,Total 8.3 MG/DL (0.2-1.0); Calcium 7.4 MG/DL (8.5-10.1); Osmolality,Calculated 266.1 MOS/KG (273-304); Potassium 3.4 MMOL/L (3.5-5.1); Total Protein 4.9 G/DL (6.4-8.3)
[2017-11-17 04:43] LABS: INR 1.7; PT Patient Result 17.4 SECS
[2017-11-17] MEDS: POTASSIUM CHLORIDE INJ 20 MEQ, MAGNESIUM SULF INJ 1 GM in DEXTROSE 5% NACL 0.9% 1,000 ML IV SCH (05:23)
[2017-11-17] MEDS: LORazepam 1 MG TABLET PO SCH ×3 (10:13→21:03)
[2017-11-17] MEDS: FOLIC ACID 1 MG TABLET PO SCH (10:13)
[2017-11-17] MEDS: DOCUSATE SODIUM 100 MG CAPSULE PO SCH ×2 (10:13→21:03)
[2017-11-17] MEDS: ESTROGENS (CONJ) 0.625 MG TABLET PO SCH (10:13)
[2017-11-17] MEDS: THIAMINE 200 MG/2 ML VIAL IV SCH (10:13)
[2017-11-17] MEDS ORDERED: POTASSIUM CHLORIDE 8 MEQ CAPSULE PO ONE (10:14)
[2017-11-17] MEDS: PANTOPRAZOLE 40 MG VIAL IV SCH ×2 (10:14→21:21)
[2017-11-17] MEDS: MORPHINE 4 MG/1 ML VIAL IV PRN ×3 (10:22→23:24)
[2017-11-17] MEDS: ONDANSETRON 4 MG/2 ML VIAL IV PRN ×3 (10:31→23:22)
[2017-11-17] MEDS ORDERED: SODIUM CHLORIDE 0.9% 1,000 ML IV PRN (10:35)
[2017-11-17] MEDS ORDERED: FUROSEMIDE 20 MG/2 ML VIAL IV PRN (10:35)
[2017-11-17] MEDS: POTASSIUM CHLORIDE RIDER 10 MEQ in PREMIX 1 EACH IV SCH ×2 (12:49→17:45)
[2017-11-17] MEDS: DEXTROSE 5% IV SCH (13:31)
[2017-11-17] MEDS: MAGNESIUM SULF IV SCH (13:31)
[2017-11-17] MEDS: NACL 0.9% IV SCH (13:31)
[2017-11-17] MEDS ORDERED: FUROSEMIDE 20 MG/2 ML VIAL IV ONE (21:00)
[2017-11-17] MEDS: POLYETHYLENE GLYCOL POWDER 17 GM PACK PO SCH (21:03)
[2017-11-18] MEDS: NACL 0.9% IV SCH ×4 (01:30→20:12)
[2017-11-18] MEDS: DEXTROSE 5% IV SCH ×4 (01:30→20:12)
[2017-11-18] MEDS: MAGNESIUM SULF IV SCH ×4 (01:30→20:12)
[2017-11-18 04:56] LABS: Basophils % 0.5 % (0.0-0.8); Eosinophils # 0.1 10*3/uL (0.0-0.87); Eosinophils % 1.9 % (0.00-10.9); Hematocrit 33.5 VOL% (35.7-47.0); Hemoglobin 11.2 GM/DL (12.0-16.0); Immature Granulocytes % 0.5 %; Immature Granulocytes Absolute 0.04 #; Lymphocytes % 12.7 % (21.3-54.2); Mean Corpuscular HGB Conc 33.4 GM/DL (32-36); Mean Corpuscular Hemoglobin 33 PG (27-34); Mean Corpuscular Volume 97.7 FL (87-102); Mean Platelet Volume 10.6 FL (9.6-12.0); Monocytes # 0.8 10*3/uL (0.11-0.8); Monocytes % 10.3 % (1.7-12.7); Neutrophils # 5.5 10*3/uL (1.4-7.4); Neutrophils % 74.1 % (38.7-73.9); Platelet Count 82 T/CUMM (130-400); Red Blood Count 3.43 MC/CUMM (3.8-5.5); White Blood Count 7.5 T/CUMM (4-12)
[2017-11-18 04:57] LABS: Hematocrit 32.5 VOL% (35.7-47.0); Hemoglobin 11.5 GM/DL (12.0-16.0)
[2017-11-18 06:43] LABS: Hypochromasia 1+; Lymphocytes 10 % (20-55); Platelet Estimate Decreased; Segmented Neutrophils 83 % (50-85); Total Cells Counted 100
[2017-11-18] MEDS: LORazepam 1 MG TABLET PO SCH ×3 (09:18→21:31)
[2017-11-18] MEDS: FOLIC ACID 1 MG TABLET PO SCH (09:18)
[2017-11-18] MEDS: POLYETHYLENE GLYCOL POWDER 17 GM PACK PO SCH ×2 (09:19→21:27)
[2017-11-18] MEDS: MORPHINE 4 MG/1 ML VIAL IV PRN ×3 (09:19→22:19)
[2017-11-18] MEDS: ONDANSETRON 4 MG/2 ML VIAL IV PRN ×3 (09:19→22:18)
[2017-11-18] MEDS: ESTROGENS (CONJ) 0.625 MG TABLET PO SCH (09:19)
[2017-11-18] MEDS: THIAMINE 200 MG/2 ML VIAL IV SCH (09:23)
[2017-11-18] MEDS: PANTOPRAZOLE 40 MG VIAL IV SCH ×2 (09:26→22:15)
[2017-11-18] MEDS: DOCUSATE SODIUM 100 MG CAPSULE PO SCH ×2 (09:29→21:27)
[2017-11-18 17:08] LABS: Hematocrit 35.5 VOL% (35.7-47.0)
[2017-11-19] MEDS: DEXTROSE 5% IV SCH (04:15)
[2017-11-19] MEDS: MAGNESIUM SULF IV SCH ×3 (04:15→21:37)
[2017-11-19] MEDS: NACL 0.9% IV SCH (04:15)
[2017-11-19 05:31] LABS: Basophils # 0.1 10*3/uL (0.0-0.2); Basophils % 0.7 % (0.0-0.8); Eosinophils # 0.1 10*3/uL (0.0-0.87); Eosinophils % 1.8 % (0.00-10.9); Hematocrit 35.2 VOL% (35.7-47.0); Hemoglobin 11.9 GM/DL (12.0-16.0); Immature Granulocytes % 0.8 %; Immature Granulocytes Absolute 0.06 #; Lymphocytes # 0.9 10*3/uL (1.4-4.0); Lymphocytes % 12.4 % (21.3-54.2); Mean Corpuscular HGB Conc 33.8 GM/DL (32-36); Mean Corpuscular Hemoglobin 33 PG (27-34); Mean Corpuscular Volume 97.2 FL (87-102); Mean Platelet Volume 10.2 FL (9.6-12.0); Monocytes # 0.9 10*3/uL (0.11-0.8); Monocytes % 12.6 % (1.7-12.7); Neutrophils # 5.1 10*3/uL (1.4-7.4); Neutrophils % 71.7 % (38.7-73.9); Platelet Count 87 T/CUMM (130-400); Red Blood Count 3.62 MC/CUMM (3.8-5.5); White Blood Count 7.1 T/CUMM (4-12)
[2017-11-19 05:59] LABS: Albumin 1.7 G/DL (3.4-5.0); Calcium 7.1 MG/DL (8.5-10.1); Osmolality,Calculated 276.4 MOS/KG (273-304); Potassium 3.3 MMOL/L (3.5-5.1); Total Protein 5.1 G/DL (6.4-8.3)
[2017-11-19 06:06] LABS: Giant Platelets Few; Hypochromasia 1+; Lymphocytes 9 % (20-55); Ovalocytes Slight; Platelet Estimate Decreased; Segmented Neutrophils 82 % (50-85); Total Cells Counted 100
[2017-11-19 06:07] LABS: Macrocytosis Slight
[2017-11-19] MEDS: DOCUSATE SODIUM 100 MG CAPSULE PO SCH ×2 (08:08→21:36)
[2017-11-19] MEDS: FOLIC ACID 1 MG TABLET PO SCH (08:08)
[2017-11-19] MEDS: LORazepam 1 MG TABLET PO SCH ×3 (08:08→21:34)
[2017-11-19] MEDS: POLYETHYLENE GLYCOL POWDER 17 GM PACK PO SCH ×2 (08:09→21:37)
[2017-11-19] MEDS: ESTROGENS (CONJ) 0.625 MG TABLET PO SCH (08:09)
[2017-11-19] MEDS: THIAMINE 200 MG/2 ML VIAL IV SCH (09:23)
[2017-11-19] MEDS: [UNRECOGNIZED DRUG - OTHER] IV SCH ×2 (09:23→21:37)
[2017-11-19] MEDS: PANTOPRAZOLE 40 MG VIAL IV SCH ×2 (09:23→21:34)
[2017-11-19] MEDS: POTASSIUM CHLORIDE IV SCH ×2 (09:23→21:37)
[2017-11-19] MEDS: MORPHINE 4 MG/1 ML VIAL IV PRN ×2 (11:35→18:40)
[2017-11-19] MEDS: ONDANSETRON 4 MG/2 ML VIAL IV PRN ×2 (11:36→18:40)
[2017-11-19] MEDS ORDERED: LIDOCAINE 1% 5 ML VIAL ONE (13:32)
[2017-11-19] MEDS ORDERED: PROPOFOL 200 MG/20 ML VIAL IV ONE (13:32)
[2017-11-20] MEDS: MAGNESIUM SULF IV SCH ×2 (05:36→16:16)
[2017-11-20] MEDS: POTASSIUM CHLORIDE IV SCH ×2 (05:36→16:16)
[2017-11-20] MEDS: [UNRECOGNIZED DRUG - OTHER] IV SCH ×2 (05:36→16:16)
[2017-11-20 06:16] LABS: Basophils # 0.1 10*3/uL (0.0-0.2); Basophils % 0.7 % (0.0-0.8); Eosinophils # 0.1 10*3/uL (0.0-0.87); Eosinophils % 1.9 % (0.00-10.9); Hematocrit 34.5 VOL% (35.7-47.0); Hemoglobin 11.8 GM/DL (12.0-16.0); Immature Granulocytes % 1.1 %; Immature Granulocytes Absolute 0.08 #; Lymphocytes # 0.8 10*3/uL (1.4-4.0); Lymphocytes % 11.6 % (21.3-54.2); Mean Corpuscular HGB Conc 34.2 GM/DL (32-36); Mean Corpuscular Hemoglobin 34 PG (27-34); Mean Corpuscular Volume 99.4 FL (87-102); Mean Platelet Volume 10.3 FL (9.6-12.0); Monocytes # 1.1 10*3/uL (0.11-0.8); Monocytes % 15.7 % (1.7-12.7); NRBC # 0.02 10*3/uL; Platelet Count 88 T/CUMM (130-400); Red Blood Count 3.47 MC/CUMM (3.8-5.5); Red Cell Distribution Width 25.6 % (9.3-17.3); White Blood Count 7.2 T/CUMM (4-12)
[2017-11-20 06:40] LABS: Band Neutrophils 2 % (0-10); Burr Cells Slight; Eosinophils 1 % (0-10); Hypochromasia 1+; Lymphocytes 10 % (20-55); Platelet Estimate Decreased; Polychromasia Slight; Segmented Neutrophils 78 % (50-85); Target Cells Slight; Total Cells Counted 100
[2017-11-20 06:45] LABS: Albumin 1.5 G/DL (3.4-5.0); Calcium 7.3 MG/DL (8.5-10.1); Osmolality,Calculated 278.3 MOS/KG (273-304); Potassium 3.7 MMOL/L (3.5-5.1); Total Protein 4.8 G/DL (6.4-8.3)
[2017-11-20] MEDS: ESTROGENS (CONJ) 0.625 MG TABLET PO SCH (08:52)
[2017-11-20] MEDS: DOCUSATE SODIUM 100 MG CAPSULE PO SCH ×2 (08:52→21:37)
[2017-11-20] MEDS: FOLIC ACID 1 MG TABLET PO SCH (08:52)
[2017-11-20] MEDS: ONDANSETRON 4 MG/2 ML VIAL IV PRN ×2 (08:53→16:16)
[2017-11-20] MEDS: MORPHINE 4 MG/1 ML VIAL IV PRN ×3 (08:53→22:30)
[2017-11-20] MEDS: POLYETHYLENE GLYCOL POWDER 17 GM PACK PO SCH ×2 (08:53→21:47)
[2017-11-20] MEDS: THIAMINE 200 MG/2 ML VIAL IV SCH (08:54)
[2017-11-20] MEDS: PANTOPRAZOLE 40 MG VIAL IV SCH ×2 (08:54→21:37)
[2017-11-20] MEDS: ZALEPLON 5 MG CAPSULE PO SCH (21:36)
[2017-11-21 06:33] LABS: Basophils # 0.1 10*3/uL (0.0-0.2); Basophils % 0.9 % (0.0-0.8); Eosinophils # 0.1 10*3/uL (0.0-0.87); Eosinophils % 1.6 % (0.00-10.9); Hematocrit 37.4 VOL% (35.7-47.0); Hemoglobin 12.2 GM/DL (12.0-16.0); Immature Granulocytes % 1.6 %; Immature Granulocytes Absolute 0.12 #; Lymphocytes # 1.1 10*3/uL (1.4-4.0); Lymphocytes % 14.3 % (21.3-54.2); Mean Corpuscular HGB Conc 32.6 GM/DL (32-36); Mean Corpuscular Hemoglobin 34 PG (27-34); Mean Platelet Volume 10.1 FL (9.6-12.0); Monocytes # 1.3 10*3/uL (0.11-0.8); Neutrophils # 4.9 10*3/uL (1.4-7.4); Neutrophils % 64.6 % (38.7-73.9); Platelet Count 93 T/CUMM (130-400); Red Blood Count 3.63 MC/CUMM (3.8-5.5); White Blood Count 7.5 T/CUMM (4-12)
[2017-11-21 06:54] LABS: Eosinophils 2 % (0-10); Hypochromasia 1+; Lymphocytes 11 % (20-55); Platelet Estimate Decreased; Segmented Neutrophils 78 % (50-85); Total Cells Counted 100
[2017-11-21 06:55] LABS: Macrocytosis Slight
[2017-11-21 07:08] LABS: Albumin 1.7 G/DL (3.4-5.0); Bilirubin,Total 9.7 MG/DL (0.2-1.0); Calcium 7.6 MG/DL (8.5-10.1); Osmolality,Calculated 272.5 MOS/KG (273-304); Potassium 4.2 MMOL/L (3.5-5.1); Total Protein 5.1 G/DL (6.4-8.3)
[2017-11-21] MEDS: ESTROGENS (CONJ) 0.625 MG TABLET PO SCH (09:22)
[2017-11-21] MEDS: FOLIC ACID 1 MG TABLET PO SCH (09:23)
[2017-11-21] MEDS: MORPHINE 4 MG/1 ML VIAL IV PRN ×3 (09:23→22:20)
[2017-11-21] MEDS: DOCUSATE SODIUM 100 MG CAPSULE PO SCH ×2 (09:23→21:19)
[2017-11-21] MEDS: POLYETHYLENE GLYCOL POWDER 17 GM PACK PO SCH ×2 (09:23→22:13)
[2017-11-21] MEDS: THIAMINE 200 MG/2 ML VIAL IV SCH (09:24)
[2017-11-21] MEDS: PANTOPRAZOLE 40 MG VIAL IV SCH (09:25)
[2017-11-21] MEDS: ONDANSETRON 4 MG/2 ML VIAL IV PRN ×3 (09:35→22:21)
[2017-11-21] MEDS: SPIRONOLACTONE 50 MG TABLET PO SCH (22:20)
[2017-11-21] MEDS: ZALEPLON 5 MG CAPSULE PO SCH (22:20)
[2017-11-22 04:28] LABS: Basophils # 0.1 10*3/uL (0.0-0.2); Basophils % 0.9 % (0.0-0.8); Eosinophils # 0.1 10*3/uL (0.0-0.87); Eosinophils % 1.8 % (0.00-10.9); Hematocrit 33.1 VOL% (35.7-47.0); Hemoglobin 11.3 GM/DL (12.0-16.0); Immature Granulocytes % 0.9 %; Immature Granulocytes Absolute 0.06 #; Lymphocytes # 1.3 10*3/uL (1.4-4.0); Lymphocytes % 18.7 % (21.3-54.2); Mean Corpuscular HGB Conc 34.1 GM/DL (32-36); Mean Corpuscular Hemoglobin 35 PG (27-34); Mean Corpuscular Volume 101.8 FL (87-102); Monocytes # 1.2 10*3/uL (0.11-0.8); Monocytes % 17.8 % (1.7-12.7); Neutrophils % 59.9 % (38.7-73.9); Platelet Count 86 T/CUMM (130-400); Red Blood Count 3.25 MC/CUMM (3.8-5.5); Red Cell Distribution Width 25.3 % (9.3-17.3); White Blood Count 6.7 T/CUMM (4-12)
[2017-11-22 04:57] LABS: Band Neutrophils 1 % (0-10); Eosinophils 3 % (0-10); Hypochromasia 1+; Lymphocytes 10 % (20-55); Macrocytosis Slight; Platelet Estimate Decreased; Segmented Neutrophils 76 % (50-85); Total Cells Counted 100
[2017-11-22 05:00] LABS: Albumin 1.7 G/DL (3.4-5.0); Bilirubin,Total 7.8 MG/DL (0.2-1.0); Calcium 7.6 MG/DL (8.5-10.1); Osmolality,Calculated 268.8 MOS/KG (273-304); Potassium 4.1 MMOL/L (3.5-5.1); Total Protein 4.9 G/DL (6.4-8.3)
[2017-11-22] MEDS: ONDANSETRON 4 MG/2 ML VIAL IV PRN ×3 (07:59→21:56)
[2017-11-22] MEDS: DOCUSATE SODIUM 100 MG CAPSULE PO SCH ×2 (10:57→20:09)
[2017-11-22] MEDS: FOLIC ACID 1 MG TABLET PO SCH (10:57)
[2017-11-22] MEDS: SPIRONOLACTONE 50 MG TABLET PO SCH ×2 (10:57→21:56)
[2017-11-22] MEDS: ESTROGENS (CONJ) 0.625 MG TABLET PO SCH (10:57)
[2017-11-22] MEDS: FUROSEMIDE 20 MG TABLET PO SCH (10:57)
[2017-11-22] MEDS: THIAMINE 100 MG TABLET PO SCH (10:57)
[2017-11-22] MEDS: PANTOPRAZOLE 40 MG TABLET PO SCH (10:57)
[2017-11-22] MEDS: POLYETHYLENE GLYCOL POWDER 17 GM PACK PO SCH ×2 (10:58→20:09)
[2017-11-22] MEDS: MORPHINE 4 MG/1 ML VIAL IV PRN ×3 (10:58→21:57)
[2017-11-22] MEDS: ZALEPLON 5 MG CAPSULE PO SCH (21:56)
[2017-11-23 04:27] LABS: Basophils # 0.1 10*3/uL (0.0-0.2); Basophils % 0.9 % (0.0-0.8); Eosinophils # 0.1 10*3/uL (0.0-0.87); Eosinophils % 1.9 % (0.00-10.9); Hematocrit 32.5 VOL% (35.7-47.0); Immature Granulocytes % 1.2 %; Immature Granulocytes Absolute 0.08 #; Lymphocytes # 1.3 10*3/uL (1.4-4.0); Lymphocytes % 19.4 % (21.3-54.2); Mean Corpuscular HGB Conc 33.8 GM/DL (32-36); Mean Corpuscular Hemoglobin 34 PG (27-34); Mean Corpuscular Volume 100.9 FL (87-102); Mean Platelet Volume 10.4 FL (9.6-12.0); Monocytes # 1.2 10*3/uL (0.11-0.8); Monocytes % 18.5 % (1.7-12.7); Neutrophils # 3.8 10*3/uL (1.4-7.4); Neutrophils % 58.1 % (38.7-73.9); Platelet Count 100 T/CUMM (130-400); Red Blood Count 3.22 MC/CUMM (3.8-5.5); Red Cell Distribution Width 24.7 % (9.3-17.3); White Blood Count 6.5 T/CUMM (4-12)
[2017-11-23 04:56] LABS: Albumin 1.6 G/DL (3.4-5.0); Bilirubin,Total 7.5 MG/DL (0.2-1.0); Calcium 7.7 MG/DL (8.5-10.1); Osmolality,Calculated 267.8 MOS/KG (273-304); Potassium 3.4 MMOL/L (3.5-5.1); Total Protein 5.2 G/DL (6.4-8.3)
[2017-11-23 05:03] LABS: Eosinophils 1 % (0-10); Lymphocytes 11 % (20-55); Segmented Neutrophils 80 % (50-85)
[2017-11-23 05:04] LABS: Band Neutrophils 31 % (0-10); Hypochromasia 1+; Total Cells Counted 131
[2017-11-23 05:05] LABS: Macrocytosis Slight; Target Cells Few
[2017-11-23 05:06] LABS: Platelet Estimate Decreased
[2017-11-23] MEDS ORDERED: ONDANSETRON 4 MG TABLET PO PRN (08:07)
[2017-11-23] MEDS: ONDANSETRON 4 MG/2 ML VIAL IV PRN (08:38)
[2017-11-23] MEDS ORDERED: POTASSIUM CHLORIDE 10 MEQ TABLET PO SCH (09:00)
[2017-11-23] MEDS: PANTOPRAZOLE 40 MG TABLET PO SCH (10:40)
[2017-11-23] MEDS: DOCUSATE SODIUM 100 MG CAPSULE PO SCH (10:40)
[2017-11-23] MEDS: THIAMINE 100 MG TABLET PO SCH (10:40)
[2017-11-23] MEDS: FUROSEMIDE 20 MG TABLET PO SCH (10:40)
[2017-11-23] MEDS: SPIRONOLACTONE 50 MG TABLET PO SCH (10:40)
[2017-11-23] MEDS: POLYETHYLENE GLYCOL POWDER 17 GM PACK PO SCH (10:40)
[2017-11-23] MEDS: FOLIC ACID 1 MG TABLET PO SCH (10:40)
[2017-11-23] MEDS: ESTROGENS (CONJ) 0.625 MG TABLET PO SCH (10:40)
[2017-11-23 11:52] LABS: Neutrophils,Peritoneal Fluid 72 %
[2017-11-23 11:53] LABS: RBC,Peritoneal Fluid < 1 T/CUMM
[2017-11-23 12:04] VITALS: BP 109/78
[2017-11-23] MEDS ORDERED: traMADol 50 MG TABLET PO PRN (13:28)
== END 2017-11-23 16:18 | disposition home or self-care (01) | DRG 433 ==
LOC: N.CC 11:40 → N.2E 14:58
PROVIDERS: ADMIT Family Medicine; ATTEND Family Medicine

== ENCOUNTER 2018-01-05 09:02 | Inpatient (IN) ==
[2018-01-05] MEDS ORDERED: ONDANSETRON 4 MG/2 ML VIAL IV STA (09:34)
[2018-01-05] MEDS ORDERED: SODIUM CHLORIDE 0.9% 2,000 ML IV STA (09:34)
[2018-01-05] MEDS ORDERED: ONDANSETRON 4 MG/2 ML VIAL IV ONE (10:51)
[2018-01-05 10:53] LABS: Apearance,Urine Slightly Hazy (Clear); Bilirubin,Urine Small mg/dL (Negative); Blood, Urine Negative (Negative); Glucose,Urine (UA) Negative (Negative); Hyaline Casts,Urine 59 /LPF (0-3); Ketones,Urine 5 mg/dL (Negative); Mucus,Urine Few /LPF (Occasional); Nitrite,Urine Negative (Negative); Protein,Urine 30 MG/DL; RBC,Urine 2 /HPF (0-4); Squamous Epithelial Cell,Urine Occasional /HPF (0-10); Urine Color Amber (Yellow); Urine Specific Gravity 1.013 (1.001-1.035); WBC,Urine 2 /HPF (0-6)
[2018-01-05 10:54] LABS: Basophils % 0.1 % (0.0-0.8); Eosinophils % 0.1 % (0.00-10.9); Hematocrit 25.2 VOL% (35.7-47.0); Immature Granulocytes % 0.7 %; Immature Granulocytes Absolute 0.08 #; Lymphocytes # 0.6 10*3/uL (1.4-4.0); Lymphocytes % 5.1 % (21.3-54.2); Mean Corpuscular HGB Conc 38.9 GM/DL (32-36); Mean Corpuscular Hemoglobin 38 PG (27-34); Mean Corpuscular Volume 97.7 FL (87-102); Monocytes # 0.7 10*3/uL (0.11-0.8); Monocytes % 5.6 % (1.7-12.7); Neutrophils # 10.8 10*3/uL (1.4-7.4); Neutrophils % 88.4 % (38.7-73.9); Platelet Count 55 T/CUMM (130-400); Red Blood Count 2.58 MC/CUMM (3.8-5.5); Red Cell Distribution Width 15.7 % (9.3-17.3); White Blood Count 12.2 T/CUMM (4-12)
[2018-01-05 11:00] LABS: Hemoglobin 9.6 GM/DL (12.0-16.0)
[2018-01-05 11:15] LABS: Albumin 1.9 G/DL (3.4-5.0); Bilirubin,Total 8.4 MG/DL (0.2-1.0); Calcium 7.9 MG/DL (8.5-10.1); Lactic Acid 10.5 MMOL/L (0.4-2.0); Osmolality,Calculated 232.5 MOS/KG (273-304); Total Protein 5.8 G/DL (6.4-8.3)
[2018-01-05 11:19] LABS: Potassium 2.5 MMOL/L (3.5-5.1)
[2018-01-05 11:25] LABS: Hypochromasia 1+; Macrocytosis Slight; Platelet Estimate Decreased
[2018-01-05] MEDS ORDERED: SODIUM CHLOR 0.9% KCL 40 MEQ 40 MEQ/1,000 ML BAG IV SCH (11:30)
[2018-01-05] MEDS ORDERED: ACETAMINOPHEN 325 MG TABLET PO PRN (12:10)
[2018-01-05] MEDS ORDERED: ONDANSETRON 4 MG/2 ML VIAL IV PRN (12:10)
[2018-01-05] MEDS ORDERED: LORazepam 2 MG/1 ML VIAL ONE ×2 (14:56→16:08)
[2018-01-05] MEDS: MAGNESIUM SULF RIDER 2 GM in PREMIX 1 EACH IV PRN ×2 (15:00→16:04)
[2018-01-05] MEDS: LORazepam 2 MG/1 ML VIAL IV PRN ×4 (15:06→22:30)
[2018-01-05] MEDS ORDERED: MAGNESIUM SULF RIDER 50 ML IV ONE ×2 (15:06→16:09)
[2018-01-05 15:44] LABS: Calcium 7.8 MG/DL (8.5-10.1); Osmolality,Calculated 238.9 MOS/KG (273-304); Potassium 3.3 MMOL/L (3.5-5.1)
[2018-01-05] MEDS ORDERED: PHENYLEPHRINE DRIP 40 MG/250 ML PREMIX IV PRN (19:21)
[2018-01-05] MEDS ORDERED: MAGNESIUM SULF RIDER 4 GM in PREMIX 1 EACH IV PRN (19:21)
[2018-01-05] MEDS ORDERED: POTASSIUM CHLORIDE RIDER 10 MEQ in PREMIX 1 EACH IV PRN ×2 (19:21→22:01)
[2018-01-05] MEDS ORDERED: DEXTROSE 50% 25 GM/50 ML VIAL IV ONE (19:26)
[2018-01-05] MEDS: DEXTROSE 50% 25 GM/50 ML VIAL IV PRN (19:30)
[2018-01-05] MEDS: SODIUM CHLOR 0.9% KCL 20 MEQ 20 MEQ/1,000 ML BAG IV SCH ×2 (19:59→22:29)
[2018-01-05] MEDS ORDERED: SODIUM CHLORIDE 0.9% 1,000 ML IV ONE (21:23)
[2018-01-05] MEDS: DOCUSATE SODIUM 100 MG CAPSULE PO SCH (21:54)
[2018-01-05 21:55] LABS: Ammonia 31 UMOL/L (11-32)
[2018-01-05 21:56] LABS: Calcium 7.2 MG/DL (8.5-10.1); Osmolality,Calculated 245.6 MOS/KG (273-304); Potassium 2.6 MMOL/L (3.5-5.1)
[2018-01-05 22:11] LABS: Lactic Acid 16.4 MMOL/L (0.4-2.0)
[2018-01-05 22:23] LABS: Folate 4.3 NG/ML (5.4-24.0)
[2018-01-05] MEDS: POTASSIUM CHLORIDE RIDER 20 MEQ in PREMIX 1 EACH IV PRN ×2 (22:29→23:19)
[2018-01-05] MEDS ORDERED: ALBUMIN 25% 25 GM in PREMIX 1 EACH IV ONE (22:41)
[2018-01-05] MEDS ORDERED: SODIUM CHLORIDE 0.9% 500 ML IV ONE (22:41)
[2018-01-05] MEDS ORDERED: cefTRIAXone 1,000 MG in SYRINGE 1 EACH IV SCH (23:00)
[2018-01-05 23:14] LABS: ABG Base Excess -14.9 MMOL/L (-2.5-2.5); ABG HCO3 8.5 MMOL/L (20-26); ABG Oxygen Saturation 97.4 % (95-100); ABG PH 7.368 (7.35-7.45); ABG PO2 122.3 MM HG (80-95)
[2018-01-05 23:16] LABS: ABG PCO2 15.1 MM HG (35-48)
[2018-01-06] MEDS: POTASSIUM CHLORIDE RIDER 20 MEQ in PREMIX 1 EACH IV PRN ×2 (00:30→06:13)
[2018-01-06 00:52] LABS: Eosinophils % 0.1 % (0.00-10.9); Immature Granulocytes % 0.6 %; Immature Granulocytes Absolute 0.08 #; Lymphocytes # 0.8 10*3/uL (1.4-4.0); Lymphocytes % 5.5 % (21.3-54.2); Mean Corpuscular HGB Conc 36.7 GM/DL (32-36); Mean Corpuscular Hemoglobin 38 PG (27-34); Mean Corpuscular Volume 102.4 FL (87-102); Mean Platelet Volume 11.5 FL (9.6-12.0); Monocytes # 0.5 10*3/uL (0.11-0.8); Monocytes % 3.5 % (1.7-12.7); Neutrophils # 12.4 10*3/uL (1.4-7.4); Neutrophils % 90.3 % (38.7-73.9); Platelet Count 46 T/CUMM (130-400); Red Blood Count 2.05 MC/CUMM (3.8-5.5); Red Cell Distribution Width 16.9 % (9.3-17.3); White Blood Count 13.7 T/CUMM (4-12)
[2018-01-06 00:58] LABS: Hemoglobin 7.7 GM/DL (12.0-16.0)
[2018-01-06] MEDS ORDERED: SODIUM CHLORIDE 0.9% 1,000 ML IV PRN (01:07)
[2018-01-06 01:47] LABS: Acanthocytes 1+; Anisocytosis 1+; Poikilocytosis 1+; Target Cells Slight
[2018-01-06] MEDS: [UNRECOGNIZED DRUG - OTHER] IV SCH ×3 (02:31→22:15)
[2018-01-06] MEDS: POTASSIUM CHLORIDE IV SCH ×3 (02:31→22:15)
[2018-01-06] MEDS: SODIUM BICARB IV SCH ×3 (02:31→22:15)
[2018-01-06 05:37] LABS: Basophils % 0.1 % (0.0-0.8); Eosinophils % 0.1 % (0.00-10.9); Hematocrit 26.5 VOL% (35.7-47.0); Immature Granulocytes % 0.5 %; Immature Granulocytes Absolute 0.08 #; Lymphocytes # 0.8 10*3/uL (1.4-4.0); Lymphocytes % 5.6 % (21.3-54.2); Mean Corpuscular HGB Conc 35.5 GM/DL (32-36); Mean Corpuscular Hemoglobin 35 PG (27-34); Mean Corpuscular Volume 99.6 FL (87-102); Monocytes # 0.4 10*3/uL (0.11-0.8); Monocytes % 2.5 % (1.7-12.7); Neutrophils # 13.6 10*3/uL (1.4-7.4); Neutrophils % 91.2 % (38.7-73.9); Platelet Count 41 T/CUMM (130-400); Red Blood Count 2.66 MC/CUMM (3.8-5.5); Red Cell Distribution Width 18.6 % (9.3-17.3); White Blood Count 14.9 T/CUMM (4-12)
[2018-01-06 05:41] LABS: Hemoglobin 9.4 GM/DL (12.0-16.0)
[2018-01-06] MEDS: LORazepam 2 MG/1 ML VIAL IV PRN ×3 (05:41→21:07)
[2018-01-06 05:52] LABS: INR 4.1
[2018-01-06 05:53] LABS: Albumin 2.2 G/DL (3.4-5.0); Bilirubin,Total 10.1 MG/DL (0.2-1.0); Calcium 7.2 MG/DL (8.5-10.1); Osmolality,Calculated 254.2 MOS/KG (273-304); Potassium 3.8 MMOL/L (3.5-5.1); Total Protein 5.3 G/DL (6.4-8.3)
[2018-01-06 05:55] LABS: Lactic Acid 13.9 MMOL/L (0.4-2.0)
[2018-01-06 05:56] LABS: PT Patient Result 41.1 SECS
[2018-01-06] MEDS ORDERED: cefTRIAXone 1,000 MG in SYRINGE 1 EACH IV ONE (06:00)
[2018-01-06 06:02] LABS: Band Neutrophils 3 % (0-10); Hypochromasia 1+; Lymphocytes 4 % (20-55); Macrocytosis Slight; Ovalocytes Slight; Platelet Estimate Decreased; Segmented Neutrophils 90 % (50-85); Total Cells Counted 100
[2018-01-06 06:22] LABS: Troponin I Only 0.139 NG/ML (0.00-0.045)
[2018-01-06] MEDS ORDERED: PROMETHAZINE 25 MG/1 ML VIAL IV PRN (08:13)
[2018-01-06] MEDS ORDERED: ONDANSETRON 4 MG/2 ML VIAL IV PRN (08:22)
[2018-01-06] MEDS ORDERED: PANTOPRAZOLE 40 MG TABLET PO SCH (09:00)
[2018-01-06] MEDS ORDERED: PANTOPRAZOLE 40 MG VIAL IV SCH (09:00)
[2018-01-06] MEDS ORDERED: ETOMIDATE 20 MG/10 ML VIAL IV ONE ×2 (09:35→09:42)
[2018-01-06] MEDS ORDERED: SUCCINYLCHOLINE 200 MG/10 ML VIAL ONE (09:35)
[2018-01-06] MEDS ORDERED: PROPOFOL 1,000 MG/100 ML BOTTLE IV ONE (09:40)
[2018-01-06] MEDS ORDERED: SUCCINYLCHOLINE 200 MG/10 ML VIAL IV ONE (09:43)
[2018-01-06] MEDS: CLINDAMYCIN INJ 600 MG in PREMIX 1 EACH IV SCH ×2 (10:00→14:02)
[2018-01-06] MEDS: PROPOFOL 1,000 MG/100 ML BOTTLE IV SCH (10:00)
[2018-01-06 11:14] LABS: ABG Base Excess -11.6 MMOL/L (-2.5-2.5); ABG HCO3 15.2 MMOL/L (20-26); ABG Oxygen Saturation 92.3 % (95-100); ABG PCO2 29.2 MM HG (35-48); ABG PH 7.288 (7.35-7.45); ABG TCO2 12.9 MMOL/L (23-27); Glucose Heart Surgery 204 MG/DL (74-106); Hematocrit Heart Surgery 30.4 PERCENT (37-47); Hemoglobin Heart Surgery 9.8 G/DL (12.0-16.0); Potassium Heart/CVR 3.9 MMOL/L (3.5-5.1)
[2018-01-06] MEDS ORDERED: OCTREOTIDE 100 MCG/ML SYRINGE IV ONE (11:49)
[2018-01-06] MEDS: OCTREOTIDE 500 MCG in SODIUM CHLORIDE 0.9% 100 ML IV SCH ×2 (12:50→23:57)
[2018-01-06 13:22] LABS: % Iron Saturation 81.6 % (18-50); Ferritin 5040.2 ng/ml (8-252)
[2018-01-06] MEDS: FOLIC ACID 1 MG TABLET NG SCH (14:00)
[2018-01-06] MEDS: RIFAXIMIN 550 MG TABLET NG SCH ×2 (14:00→22:05)
[2018-01-06] MEDS ORDERED: SODIUM BICARB INJ 50 MEQ in DEXTROSE 5% NACL 0.45% 1,000 ML IV SCH (14:30)
[2018-01-06] MEDS: THIAMINE 200 MG/2 ML VIAL IV SCH (15:21)
[2018-01-06] MEDS: DOCUSATE SODIUM 100 MG CAPSULE PO SCH (15:23)
[2018-01-06] MEDS ORDERED: SODIUM CHLORIDE 0.9% 500 ML IV SCH (16:41)
[2018-01-06] MEDS ORDERED: PHENYLEPHRINE INJ 80 MG in SODIUM CHLORIDE 0.9% 242 ML IV PRN (16:41)
[2018-01-06] MEDS: metroNIDAZOLE INJ 500 MG in PREMIX 1 EACH IV SCH ×2 (17:00→23:38)
[2018-01-06] MEDS: INSULIN REGULAR 100 UNIT/ML SUBCUT SCH ×2 (18:02→23:58)
[2018-01-06] MEDS: CIPROFLOXACIN INJ 400 MG in PREMIX 1 EACH IV SCH (18:30)
[2018-01-06 18:43] LABS: Basophils % 0.1 % (0.0-0.8); Hematocrit 32.4 VOL% (35.7-47.0); Hemoglobin 11.6 GM/DL (12.0-16.0); Immature Granulocytes % 0.4 %; Immature Granulocytes Absolute 0.03 #; Lymphocytes # 0.8 10*3/uL (1.4-4.0); Lymphocytes % 11.2 % (21.3-54.2); Mean Corpuscular HGB Conc 35.8 GM/DL (32-36); Mean Corpuscular Hemoglobin 33 PG (27-34); Mean Corpuscular Volume 92.3 FL (87-102); Mean Platelet Volume 10.7 FL (9.6-12.0); Monocytes # 0.1 10*3/uL (0.11-0.8); Neutrophils # 6.1 10*3/uL (1.4-7.4); Neutrophils % 86.3 % (38.7-73.9); Red Blood Count 3.51 MC/CUMM (3.8-5.5); Red Cell Distribution Width 20.3 % (9.3-17.3)
[2018-01-06 18:58] LABS: Albumin 1.6 G/DL (3.4-5.0); Calcium 6.1 MG/DL (8.5-10.1); Osmolality,Calculated 263.8 MOS/KG (273-304); Total Protein 4.2 G/DL (6.4-8.3)
[2018-01-06] MEDS: NOREPINEPHRINE 16 MG in SODIUM CHLORIDE 0.9% 234 ML IV PRN (19:00)
[2018-01-06 19:05] LABS: Platelet Count 35 T/CUMM (130-400)
[2018-01-06 19:21] LABS: Band Neutrophils 16 % (0-10); Burr Cells Few; Lymphocytes 5 % (20-55); Metamyelocytes 1 %; Segmented Neutrophils 78 % (50-85); Total Cells Counted 100
[2018-01-06 19:22] LABS: Target Cells Few
[2018-01-06 19:23] LABS: Platelet Estimate Decreased
[2018-01-06] MEDS: cefTRIAXone 2,000 MG in SYRINGE 1 EACH IV SCH (19:55)
[2018-01-06] MEDS ORDERED: CALCIUM GLUCONATE 1,000 MG in SODIUM CHLORIDE 0.9% 100 ML IV ONE (20:15)
[2018-01-06] MEDS ORDERED: ALBUMIN 25% 25 GM in PREMIX 1 EACH IV ONE (20:16)
[2018-01-06] MEDS: PANTOPRAZOLE 40 MG VIAL IV SCH (22:04)
[2018-01-06] MEDS: PHENYLEPHRINE INJ 160 MG in SODIUM CHLORIDE 0.9% 234 ML IV PRN (22:27)
[2018-01-07 03:24] LABS: ABG Base Excess -8.9 MMOL/L (-2.5-2.5); ABG HCO3 17.3 MMOL/L (20-26); ABG Oxygen Saturation 95.4 % (95-100); ABG PH 7.379 (7.35-7.45); ABG PO2 76.4 MM HG (80-95); ABG TCO2 13.1 MMOL/L (23-27)
[2018-01-07 04:58] LABS: Basophils # 0.1 10*3/uL (0.0-0.2); Basophils % 0.4 % (0.0-0.8); Eosinophils # 0.1 10*3/uL (0.0-0.87); Eosinophils % 0.4 % (0.00-10.9); Hematocrit 34.6 VOL% (35.7-47.0); Hemoglobin 12.6 GM/DL (12.0-16.0); Immature Granulocytes % 1.6 %; Immature Granulocytes Absolute 0.22 #; Lymphocytes # 0.8 10*3/uL (1.4-4.0); Lymphocytes % 5.6 % (21.3-54.2); Mean Corpuscular HGB Conc 36.4 GM/DL (32-36); Mean Corpuscular Hemoglobin 33 PG (27-34); Mean Corpuscular Volume 91.5 FL (87-102); Mean Platelet Volume 11.9 FL (9.6-12.0); Monocytes # 0.5 10*3/uL (0.11-0.8); Monocytes % 3.7 % (1.7-12.7); NRBC # 0.06 10*3/uL; Neutrophils % 88.3 % (38.7-73.9); Platelet Count 47 T/CUMM (130-400); Red Blood Count 3.78 MC/CUMM (3.8-5.5); Red Cell Distribution Width 22.2 % (9.3-17.3); White Blood Count 13.6 T/CUMM (4-12)
[2018-01-07 05:14] LABS: Lactic Acid 6.5 MMOL/L (0.4-2.0)
[2018-01-07] MEDS: POTASSIUM CHLORIDE IV SCH (05:14)
[2018-01-07] MEDS: [UNRECOGNIZED DRUG - OTHER] IV SCH (05:14)
[2018-01-07] MEDS: SODIUM BICARB IV SCH (05:14)
[2018-01-07 05:22] LABS: Albumin 1.5 G/DL (3.4-5.0); Bilirubin,Total 7.6 MG/DL (0.2-1.0); Calcium 6.7 MG/DL (8.5-10.1); Osmolality,Calculated 263.7 MOS/KG (273-304); Potassium 4.9 MMOL/L (3.5-5.1); Total Protein 4.3 G/DL (6.4-8.3)
[2018-01-07 06:04] LABS: Band Neutrophils 15 % (0-10); Lymphocytes 5 % (20-55); Metamyelocytes 1 %; Nucleated Red Blood Cells 1 (0-5); Segmented Neutrophils 73 % (50-85); Total Cells Counted 100
[2018-01-07 06:05] LABS: Hypochromasia 1+; Microcytosis 1+; Target Cells Few
[2018-01-07 06:06] LABS: Platelet Estimate Decreased; Tear Drop Cells Slight
[2018-01-07 06:07] LABS: Burr Cells Slight
[2018-01-07] MEDS: CIPROFLOXACIN INJ 400 MG in PREMIX 1 EACH IV SCH (06:07)
[2018-01-07] MEDS: INSULIN REGULAR 100 UNIT/ML SUBCUT SCH ×4 (06:07→23:48)
[2018-01-07] MEDS: PROPOFOL 1,000 MG/100 ML BOTTLE IV SCH ×2 (06:08→10:47)
[2018-01-07] MEDS: MAGNESIUM SULF RIDER 2 GM in PREMIX 1 EACH IV PRN (06:09)
[2018-01-07] MEDS: PHENYLEPHRINE INJ 160 MG in SODIUM CHLORIDE 0.9% 234 ML IV PRN ×3 (06:27→21:49)
[2018-01-07] MEDS: NOREPINEPHRINE 16 MG in SODIUM CHLORIDE 0.9% 234 ML IV PRN ×3 (07:35→21:16)
[2018-01-07] MEDS ORDERED: SODIUM CHLORIDE 0.9% 1,000 ML IV PRN (07:40)
[2018-01-07 07:58] LABS: ABG Base Excess -8.4 MMOL/L (-2.5-2.5); ABG HCO3 17.6 MMOL/L (20-26); ABG PCO2 25.9 MM HG (35-48); ABG PH 7.379 (7.35-7.45); ABG PO2 61.2 MM HG (80-95); ABG TCO2 13.5 MMOL/L (23-27); Allen Test Positive; Pt O2 Delivery Device Ventilator
[2018-01-07] MEDS: RIFAXIMIN 550 MG TABLET NG SCH ×2 (09:10→20:08)
[2018-01-07] MEDS: FOLIC ACID 1 MG TABLET NG SCH (09:10)
[2018-01-07] MEDS: metroNIDAZOLE INJ 500 MG in PREMIX 1 EACH IV SCH ×3 (09:10→23:33)
[2018-01-07] MEDS: THIAMINE 200 MG/2 ML VIAL IV SCH (09:10)
[2018-01-07] MEDS: PANTOPRAZOLE 40 MG VIAL IV SCH ×2 (09:10→20:05)
[2018-01-07] MEDS: OCTREOTIDE 500 MCG in SODIUM CHLORIDE 0.9% 100 ML IV SCH ×2 (09:27→18:16)
[2018-01-07] MEDS: SODIUM BICARB INJ 100 MEQ in DEXTROSE 5% NACL 0.22% 1,000 ML IV SCH ×2 (11:42→23:13)
[2018-01-07] MEDS: cefTRIAXone 2,000 MG in SYRINGE 1 EACH IV SCH (15:30)
[2018-01-08] MEDS: NOREPINEPHRINE 16 MG in SODIUM CHLORIDE 0.9% 234 ML IV PRN ×2 (04:15→16:04)
[2018-01-08] MEDS: OCTREOTIDE 500 MCG in SODIUM CHLORIDE 0.9% 100 ML IV SCH ×2 (05:00→15:19)
[2018-01-08 05:01] LABS: ABG Base Excess -11.2 MMOL/L (-2.5-2.5); ABG HCO3 15.7 MMOL/L (20-26); ABG Oxygen Saturation 98.8 % (95-100); ABG PCO2 24.8 MM HG (35-48); ABG PH 7.338 (7.35-7.45)
[2018-01-08] MEDS: PHENYLEPHRINE INJ 160 MG in SODIUM CHLORIDE 0.9% 234 ML IV PRN ×2 (05:30→16:04)
[2018-01-08] MEDS ORDERED: CIPROFLOXACIN INJ 400 MG in PREMIX 1 EACH IV SCH (06:00)
[2018-01-08] MEDS: DEXTROSE 50% 25 GM/50 ML VIAL IV PRN (06:10)
[2018-01-08] MEDS: INSULIN REGULAR 100 UNIT/ML SUBCUT SCH ×3 (06:16→17:48)
[2018-01-08 07:10] LABS: Basophils # 0.1 10*3/uL (0.0-0.2); Basophils % 0.8 % (0.0-0.8); Eosinophils % 0.2 % (0.00-10.9); Hematocrit 29.2 VOL% (35.7-47.0); Immature Granulocytes % 1.4 %; Immature Granulocytes Absolute 0.23 #; Lymphocytes # 0.8 10*3/uL (1.4-4.0); Lymphocytes % 4.8 % (21.3-54.2); Mean Corpuscular Hemoglobin 33 PG (27-34); Mean Corpuscular Volume 91.5 FL (87-102); Mean Platelet Volume 10.8 FL (9.6-12.0); Monocytes # 0.8 10*3/uL (0.11-0.8); Monocytes % 4.8 % (1.7-12.7); NRBC # 0.11 10*3/uL; Neutrophils # 14.3 10*3/uL (1.4-7.4); Red Blood Count 3.19 MC/CUMM (3.8-5.5); Red Cell Distribution Width 24.5 % (9.3-17.3); White Blood Count 16.3 T/CUMM (4-12)
[2018-01-08] MEDS: metroNIDAZOLE INJ 500 MG in PREMIX 1 EACH IV SCH ×2 (07:11→16:02)
[2018-01-08 07:14] LABS: Hemoglobin 10.5 GM/DL (12.0-16.0); Platelet Count 62 T/CUMM (130-400)
[2018-01-08 07:26] LABS: Calcium 6.4 MG/DL (8.5-10.1); Osmolality,Calculated 263.8 MOS/KG (273-304); Potassium 5.6 MMOL/L (3.5-5.1)
[2018-01-08 07:29] LABS: Albumin 1.6 G/DL (3.4-5.0); Bilirubin,Total 8.7 MG/DL (0.2-1.0); Calcium 6.2 MG/DL (8.5-10.1); Osmolality,Calculated 263.8 MOS/KG (273-304); Potassium 5.3 MMOL/L (3.5-5.1)
[2018-01-08 07:30] LABS: Lactic Acid 9.9 MMOL/L (0.4-2.0)
[2018-01-08 07:37] LABS: Anisocytosis 2+; Band Neutrophils 52 % (0-10); Lymphocytes 15 % (20-55); Macrocytosis 1+; Platelet Estimate Decreased; Poikilocytosis 1+; Segmented Neutrophils 32 % (50-85); Total Cells Counted 100
[2018-01-08 07:38] LABS: Burr Cells 1+
[2018-01-08] MEDS ORDERED: ALTEPLASE 2 MG VIAL INTRACATH ONE (07:55)
[2018-01-08] MEDS: PANTOPRAZOLE 40 MG VIAL IV SCH ×2 (08:47→20:02)
[2018-01-08] MEDS: FOLIC ACID 1 MG TABLET NG SCH (08:47)
[2018-01-08] MEDS: THIAMINE 200 MG/2 ML VIAL IV SCH (08:48)
[2018-01-08] MEDS: RIFAXIMIN 550 MG TABLET NG SCH ×2 (08:48→20:07)
[2018-01-08] MEDS: SODIUM BICARB INJ 100 MEQ in DEXTROSE 5% NACL 0.22% 1,000 ML IV SCH ×2 (08:49→20:08)
[2018-01-08] MEDS: PROPOFOL 1,000 MG/100 ML BOTTLE IV SCH (10:40)
[2018-01-08] MEDS: cefTRIAXone 2,000 MG in SYRINGE 1 EACH IV SCH (15:15)
[2018-01-08] MEDS: LORazepam 2 MG/1 ML VIAL IV PRN (21:28)
[2018-01-08 22:30] VITALS: BP 87/53
== END 2018-01-08 21:39 | disposition expired | DRG 441 ==
LOC: N.ED 09:02 → N.EDINP 12:10 → N.ICU 13:07
PROVIDERS: ADMIT Family Medicine; ATTEND Family Medicine